=== PATIENT | female | born 1940 | race Caucasian/White ===

== ENCOUNTER → 2016-05-08 | Outpatient (CLI) | payer OTHER | LOC: RAD 01:09 → ULTRA 01:09 → RAD 15:10 | DX: Z12.31 Encounter for screening mammogram for malignant neoplasm of breast (principal); C50.911 Malignant neoplasm of unspecified site of right female breast ==

== ENCOUNTER → 2016-11-12 | Outpatient (CLI) | payer OTHER | LOC: RAD 08:09 | DX: R92.1 Mammographic calcification found on diagnostic imaging of breast (principal) ==

== ENCOUNTER → 2017-05-13 | Outpatient (CLI) | payer OTHER | LOC: RAD 05-11 11:03 | DX: N63.11 Unspecified lump in the right breast, upper outer quadrant (principal); Z85.3 Personal history of malignant neoplasm of breast; Z92.21 Personal history of antineoplastic chemotherapy ==

== ENCOUNTER → 2018-05-18 | Outpatient (CLI) | payer OTHER | LOC: RAD 02:59 | DX: Z12.31 Encounter for screening mammogram for malignant neoplasm of breast (principal) ==